=== PATIENT | female | born 1990 | race Two or more races ===

== ENCOUNTER 2018-02-23 12:03 | Inpatient (IN) | payer OTHER ==
[~2018-02-23] VITALS: Ht 160 cm; Wt 82.1 kg
[2018-02-23] MEDS ORDERED: VENLAFAXINE HC225 MG PO (12:47)
[2018-02-23] MEDS ORDERED: EDLUAR10 MG SL (12:48)
== END 2018-02-25 15:50 | disposition home or self-care (01) | DRG 343 ==
LOC: ER 12:03 → SEC-K 22:23 → SURH 02-24 03:08
PROVIDERS: ADMIT Surgery
PROC: BW40ZZZ Ultrasonography of Abdomen (ICD-10-PCS; 2018-02-23)
PROC: BW21ZZZ Computerized Tomography (CT Scan) of Abdomen and Pelvis (ICD-10-PCS; 2018-02-23)
PROC: 0DTJ4ZZ Resection of Appendix, Percutaneous Endoscopic Approach (ICD-10-PCS; principal; 2018-02-24)
DX: K35.890 Other acute appendicitis without perforation or gangrene (principal)

== ENCOUNTER → 2018-02-28 | Emergency (ER) | payer OTHER ==
[~2018-02-28] MED LIST: EDLUAR10 MG SL; VENLAFAXINE HC225 MG PO
== END | disposition left against medical advice (07) ==
LOC: ER 10:49
DX: Z53.20 Procedure and treatment not carried out because of patient's decision for unspecified reasons (principal)